=== PATIENT | female | born 1970 | race Hispanic/Latino ===

== ENCOUNTER 2018-05-21 11:14 | Emergency (ER) | payer OTHER ==
[2018-05-21 11:20] VITALS: BMI 24.1
[2018-05-21 11:37] VITALS: PULSE 78; O2SAT 100
[2018-05-21] MEDS ORDERED: Sodium Chloride 0.9% 1,000 ML IV STA (11:55)
--- NOTE | 2018-05-21 12:05 | ED PDOC ---
Syncope/Near Syncope/Dizziness Chief Complaint (Provider): Presyncope History Per: Patient History/Exam Limitations: no limitations Onset/Duration Of Symptoms: Hrs Current Symptoms Are (Timing): Better Number Of Syncopal Episodes: 1 Activity At Onset Of Symptoms: Standing Associated Symptoms Preceding Syncopal Episode: Lightheadedness Seizure Or Post-ictal Symptoms: None Possible Causative Factor(s): Lightheaded W/Standing, Lightheaded W/Exertion Fall Associated With With Symptoms: Yes, No Injury As Result Of Fall Severity: Mild Additional Complaint(s): 47 yo F with pmhx of intermittent lightheadedness and frequent UTI presents to the ED with an episode of presyncope . approximately 10 hour prior to arrival, patient was getting onto the bus when she felt lightheaded and slowly loss her balance. Nearby pedestrians were able to assist her as she laid on the grown. Denied prior headache or "blackout". Denies head trauma, focal neurological deficits, loss of consciousness. Reports chronic, many year history of lightheadedness and similar episode when diagnosed with UTI and then subsequently treated. Denies weakness, numbness, tingling, headache, confusion, chest pain, SOB. PMD: Dr. Henriquez at [facility] in [facility] pmhx: intermittent lightheadedness and frequent UTI, lichen sclerosis Famhx: dm soc: denies smoking/alcohol/ illicit drugs Lives with lmp: 05/13/2018 last 3 days. Allergies to augmentin, ciprofloxacin, clavulanic acid, metronidazole Rx: control, betamethasone - Symptoms Of CVA Recent Head Trauma: No <Shantanu Amezcua - Last Filed: 05/21/18 14:07> Additional Complaint(s): No numbness, tingles, weakness, headaches. Has had cough, nasal congestion for few days. No chest pain. No dyspnea. Took nyquil at night and thinks this was still in her system. <Juan Ruiz - Last Filed: 05/21/18 14:38> Time Seen by Provider: 05/21/18 11:32 Chief Complaint (Nursing): Dizziness/Lightheaded Supervising Attending Note - Supervising Attending Note The Documented history was done by the: Physician Budget Manager The documented physical exam was done by the: Physician Budget Manager The documented procedures were done by the: Physician Budget Manager - Attestation: I have personally seen and examined this patient.: Yes I have fully participated in the care of the patient.: Yes I have reviewed all pertinent clinical information: Yes <Juan Ruiz Luis Alberto - Last Filed: 05/21/18 14:38> Past Medical History Vital Signs: Last Vital Signs Temp 98 F 05/21/18 11:28 Pulse 78 05/21/18 11:28 Resp 15 05/21/18 11:28 BP 97/57 L 05/21/18 11:28 Pulse Ox 100 05/21/18 11:28 - Immunization History Hx Tetanus Toxoid Vaccination: No Hx Influenza Vaccination: No Hx Pneumococcal Vaccination: No <Shantanu Amezcua - Last Filed: 05/21/18 14:07> Reviewed: Nursing Documentation, Vital Signs Vital Signs: Last Vital Signs Temp 98 F 05/21/18 11:28 Pulse 78 05/21/18 11:28 Resp 15 05/21/18 11:28 BP 97/57 L 05/21/18 11:28 Pulse Ox 100 05/21/18 14:08 - Medical History Other PMH: dizziness hx - Family History Family History: States: Unknown Family Hx <Juan Ruiz Luis Alberto - Last Filed: 05/21/18 14:38> - Allergies Allergies/Adverse Reactions: Allergies Allergy/AdvReac Type Severity Reaction Status Date / Time amoxicillin [From Augmentin] Allergy DIARRHEA Verified 05/21/18 11:50 ciprofloxacin Allergy PAIN Verified 05/21/18 11:50 clavulanic acid Allergy DIARRHEA Verified 05/21/18 11:50 [From Augmentin] metronidazole [From Flagyl] Allergy PAIN Verified 05/21/18 11:50 Physical Exam - Physical Exam Cardiovascular/Chest: Positive for: Regular Rate, Rhythm Respiratory: Positive for: Normal Breath Sounds Neurologic/Psych: Positive for: Alert, health screener II-XII, Oriented. Negative for: Motor/Sensory Deficits <Juan Ruiz - Last Filed: 05/21/18 14:38> - Laboratory Results Result Diagrams: 05/21/18 12:11 05/21/18 12:11 - ECG O2 Sat by Pulse Oximetry: 100 - Progress ED Course And Treament: 47 yo F with pmhx of intermittent lightheadedness and frequent UTI presents to the ED with an episode of presyncope. -Orthostatic bp -influenza -cbc, bmp, troponin -ekg -U dip -ns 1L 14:08 -Pt seen and examined at bedside. aaox3 Reports hunger. Pt given food tray case dw Dr. Sara Amezcua MD PGY2 <Shantanu Amezcua - Last Filed: 05/21/18 14:07> - Laboratory Results Result Diagrams: 05/21/18 12:11 05/21/18 12:11 Interpretation Of Abn Labs: no acute - ECG ECG: Positive for: Interpreted By Me, Viewed By Me ECG Rhythm: Positive for: Normal QRS, Normal ST Segment, Sinus Rhythm Pulse Ox Interpretation: Normal - Progress ED Course And Treament: 1436: Stable. BP usually low like today level. AAOx3. No dizziness. Tolerated PO. Fu with pcp. Ambulated with no issues. <Juan Ruiz - Last Filed: 05/21/18 14:38> Disposition <Shantanu Amezcua - Last Filed: 05/21/18 14:07> Counseled Patient/Family Regarding: Studies Performed, Diagnosis, Need For Followup - Disposition Disposition: Routine/Home Disposition Time: 14:37 <Juan Ruiz - Last Filed: 05/21/18 14:38> - Clinical Impression Clinical Impression: Dizziness, URI (upper respiratory infection) - Disposition Referrals: [facility] [Outside] - 05/22/18 Condition: STABLE Additional Instructions: Return if not better in 3 days. Instructions: Dizziness, Nonvertigo, (DC), Viral Upper Respiratory Infection, Adult (DC) Forms: [facility] ED School/Work Excuse
[2018-05-21 12:19] LABS: BASO % 0.4 % (0.0-2.0); EOS # 0.1 K/uL (0.0-0.7); HEMOGLOBIN 14.4 g/dL (12.0-16.0); LYMPH # 1.1 K/uL (1.0-4.3); LYMPH % 10.6 % (20.0-40.0); MEAN CELL VOLUME 93.3 fl (81.0-99.0); MEAN CORPUSCULAR HEMOGLOBIN 31.7 pg (27.0-31.0); MEAN PLATELET VOLUME 9.1 fl (7.2-11.7); MONO # 1.4 K/uL (0.0-0.8); MONO % 13.4 % (0.0-10.0); NEUT # 7.6 K/uL (1.8-7.0); NEUT % 74.6 % (50.0-75.0); NRBC % 0.1 % (0.0-0.0); RBC 4.53 Mil/uL (3.80-5.20); RED CELL DISTRIBUTION WIDTH 12.4 % (11.5-14.5); WHITE BLOOD COUNT 10.2 K/uL (4.8-10.8)
[2018-05-21 12:34] LABS: ALB/GLOB RATIO 1.3 (1.0-2.1); ALBUMIN 3.9 g/dL (3.5-5.0); ALT/SGPT 21 U/L (9-52); AST/SGOT 24 U/L (14-36); BLOOD UREA NITROGEN 11 mg/dl (7-17); CALCIUM 8.9 mg/dL (8.4-10.2); GFR NON-AFRICAN AMERICAN > 60
[2018-05-21 15:00] VITALS: BP 98/64; RESP 16; TEMP 98.2
--- NOTE | 2018-05-21 19:05 | CARD ---
APPROVED REPORT Date of service: 05/21/2018 <Conclusion> Normal sinus rhythm Normal ECG
== END 2018-05-21 14:42 | disposition home or self-care (01) ==
LOC: H.ER 11:14
DX: R42 Dizziness and giddiness (principal); J06.9 Acute upper respiratory infection, unspecified; Z88.0 Allergy status to penicillin
CPT/HCPCS: 80053; 82948; 84484; 85025; 87804; 93005; 99284; J7030